=== PATIENT | male | born 1935 | race Caucasian/White ===

== ENCOUNTER → 2017-11-14 | Day surgery (SDC) | payer MEDICARE ==
[~2017-11-14] VITALS: Ht 177.8 cm; Wt 90.7 kg
[~2017-11-14] MED LIST: ALBUMIN 5% 250 ML IV ONE; AMIODARONE HCL (50 MG/ ML) 3 ML VIAL IV ONE; AMIODARONE HCL 150 MG in D5W 5% 100 ML IV ONE; AMIODARONE HCL 900 MG IV ONE; AMIODARONE HCL 900 MG in DEXTROSE 500 ML IV SCH; ANGIOMAX 250 MG VIAL IV ONE; CALCIUM CHLOR(10%) 100MG/ML 10ML SYRINGE IV ONE; EPINEPHrine HCL 1 MG/10 ML SYRG IV ONE; EPINEPHrine HCL 1 MG/10 ML SYRG ONE; HEPARIN SODIUM (PORCINE) 5000 UNITS/ML 1ML VIAL IV ONE; HEPARIN SODIUM (PORCINE) 5000 UNITS/ML 1ML VIAL ONE; IODIXANOL 320MG/ML 100ML BTL IV ONE; NOREPINEPHRINE 8 MG/250ML KIT 250 ML IV ONE; NOREPINEPHRINE 8 MG/250ML KIT 250 ML IV SCH; SODIUM BICARBONATE 50ML VIAL 50 ML in SODIUM CHLORIDE 0.9% 1,000 ML IV SCH; SODIUM BICARBONATE 8.4 % INJ 50ML VIAL IV ONE; SODIUM BICARBONATE 8.4% INJ 50ML SYRINGE IV ONE; SODIUM BICARBONATE 8.4% INJ 50ML SYRINGE ONE; SODIUM CHL 0.9% 50 ML ONE
[2017-11-14 01:00] VITALS: BP 79/54
[2017-11-14 01:48] LABS: Red Blood Cells 2.04 10^6/uL (4.5-5.90)
[2017-11-14 01:49] LABS: Hematocrit 22.7 % (41.0-53.0); Mean Corpuscular Hgb Conc. 30.5 g/dL (32.0-36.0); Mean Corpuscular Volume 111.2 fL (80.0-100.0); Platelet Count (auto) 169 10^3/uL (140-450); Red Cell Distribution Width 16.2 % (11.8-14.3)
[2017-11-14 01:57] VITALS: BP 111/68
[2017-11-14 02:07] LABS: Albumin 2.1 g/dL (3.4-5.0); BUN/Creatinine Ratio 17.2; Calcium 9.8 mg/dL (8.5-10.1); Potassium 4.9 mmol/L (3.5-5.1)
[2017-11-14 02:09] LABS: Bilirubin, Total 0.5 mg/dL (0.2-1.0); Total Protein 5.3 g/dL (6.4-8.2)
[2017-11-14 02:20] LABS: Lactic Acid w/Reflex 18.7 mmol/L (0.4-2.0)
[2017-11-14 02:38] LABS: Hemoglobin 6.9 g/dL (13.5-17.5)
[2017-11-14 02:40] LABS: Basophils % (manual) 0 (0.0-2.0); Blast Cells 0; Eosinophils % (manual) 0 (0-7); Metamyelocytes % 0; Myelocytes % 0; Promyelocytes % 0; Reactive Lymphocytes 0
[2017-11-14 03:01] LABS: Band Neutrophils % (manual) 6; Lymphocytes % (manual) 17 (10.0-50.0); Monocytes % (manual) 3 (0-12)
[2017-11-14 03:23] LABS: INR 1.24 (0.9-1.15)
[2017-11-14 04:44] LABS: Urine Bacteria MANY /hpf (None Seen); Urine Blood 2+ /uL (Negative); Urine Specific Gravity 1.027 (1.001-1.035); Urine Sperm PRESENT /hpf (None Seen); Urine WBC 28 /hpf (0 - 3)
== END | disposition home or self-care (01) ==
LOC: ER 00:57 → EDAGE 00:57 → EDSEX 00:57 → CATH 01:37
PROVIDERS: ATTEND Specialist
DX: I25.10 Atherosclerotic heart disease of native coronary artery without angina pectoris (principal); I21.3 ST elevation (STEMI) myocardial infarction of unspecified site; I10 Essential (primary) hypertension; E66.9 Obesity, unspecified
CPT/HCPCS: 36415; 36600; 71045; 80053; 81001; 82805; 83605; 84484; 85007; 85027; 85379; 85610; 85730; 87040; 87070; 87205; 92920; 92950; 93005; 93458; 96374; 99285; C1769; C1894; J0171; J0282; J0583; J1644; J7030; P9045; Q9967; 94002; 99152; J7060